=== PATIENT | female | born 1965 | race Caucasian/White ===

== ENCOUNTER 2019-07-21 12:31 | Emergency (ER) | payer OTHER, SELFPAY ==
--- NOTE | ~2019-07-21 | XR_ITS ---
EXAMINATION: XR chest 2V DATE: 07/21/2019 13:14 INDICATION: Cough. TECHNIQUE: Frontal and lateral views of the chest were obtained. COMPARISON: Chest 2 views 11/24/2018 FINDINGS: The chest demonstrates clear lungs without pneumonia, pleural effusion, or pneumothorax. Th e heart size is normal. IMPRESSION: 1. No acute cardiopulmonary disease. Reviewed, dictated and finalized at location A. D COUNTER ATTENDANT
[2019-07-21 12:50] VITALS: BP 151/91; PULSE 80; RESP 16; TEMP 36.6; O2SAT 98
--- NOTE | 2019-07-21 13:04 | ED.URI ---
HPI - URI/Sore Throat General Chief Complaint: Upper Respiratory Infection Stated Complaint: CHEST COLD Time Seen by Provider: 07/21/19 12:50 Source: patient Mode of arrival: ambulatory Limitations: no limitations History of Present Illness HPI Narrative: Jen is a 54-year-old female patient. She presents ambulatory to the emergency room. She states that she has had a cough for the past 1 month.. She originally saw The nurse practitioner at Dr. Farr's office and was given prescription for amoxicillin. She took this for 1 week. She was not any better. She is given another prescription for amoxicillin. She took the 2nd prescription for 1 week. She felt better for a few days. However the cough again started up and she was given a 3rd prescription for amoxicillin on July 16. She has taken 5 days of this prescription. She is still coughing. She has no fever. No chest pain. She has wheezing. She is a half a pack a day smoker. She denies history of hypertension or disease diabetes mellitus or other problems. She is not allergic to any medications. She has not had any fever. MD elicited complaint: cough Pertinent past history: other ( half pack per day cigarette smoker) Onset (ago): month(s) ( 1 month) Consistency: intermittent Severity: moderate Description of mucous: other ( yellowish white) Able to tolerate fluids by mouth: Yes Exacerbating factors: other ( smoking) Relieving factors: nothing Context: other ( no sick contacts. No recent travel.) Associated symptoms: other ( No fever. No chills. No rhinorrhea.) Treatments prior to arrival: other ( See HPI narrative) Related Data Home Medications Medication Instructions Recorded Confirmed alprazolam 0.25 mg PO PRN PRN 07/21/19 07/21/19 citalopram 40 mg PO DAILY 07/21/19 07/21/19 Allergies Allergy/AdvReac Type Severity Reaction Status Date / Time No Known Allergies Allergy Verified 07/21/19 12:54 Review of Systems Review of Systems: All systems reviewed & are unremarkable except as noted in HPI and below Constitutional: Constitutional: Reports as per HPI, Denies chills and Denies fever(s) Eyes: Eyes: Reports as per HPI, Denies change in vision and Denies photophobia ENT: Denies dysphagia, Denies vertigo, Denies dizziness and Denies epistaxis Cardiovascular: Cardiovascular: Reports as per HPI, Denies chest pain and Denies radiating jaw, neck or arm pain Respiratory: Respiratory: Reports as per HPI, Reports cough and Reports wheezing Gastrointestinal: Gastrointestinal: Reports as per HPI, Denies abdominal pain, Denies diarrhea, Denies nausea and Denies vomiting Genitourinary: Genitourinary: Reports no additional female genitourinary complaints, Denies hematuria and Denies dysuria Musculoskeletal: Musculoskeletal: Reports no additional musculoskeletal complaints and Denies back pain Integumentary/Breasts: Skin/Breast: Reports system reviewed and no additional complaints, except as docu and Denies rash Neurologic: Reports system reviewed and no additional complaints, except as documented, Denies vertigo, Denies dizziness, Denies syncope, Denies focal weakness, Denies numbness and Denies weakness Psychiatric: Psychiatric: Reports no additional psychiatric complaints and Reports anxiety Endocrine: Endocrine: Reports no additional endocrine complaints Hematologic/Lymphatic: Hematologic/Lymphatic: Reports no additional hematologic/lymphatic complaints, Denies easy bleeding and Denies easy bruising Allergic/Immunologic: Allergic/Immunologic: Reports no additional allergic/immunologic complaints, Denies lip swelling and Denies tongue swelling [facility] Past Medical History Medical History (Updated 07/21/19 @ 14:03 by Yogi Saunders MD) Carpal tunnel syndrome, bilateral upper limbs No active medical problems Surgical History Surgical History (Updated 07/21/19 @ 13:14 by Yogi Saunders MD) S/P epidural steroid injection Family
[2019-07-21] MEDS: IPRATROPIUM 0.5 MG/ALBUTEROL SULFATE 2.5 MG AMPUL.NEB 3 ML INHALATION ×2 (13:13→14:10)
[2019-07-21 13:14] VITALS: PULSE 80; RESP 18
[2019-07-21 13:14] LABS: Basophils Absolute Auto 0.04 K/mm3 (0.00-0.10); Basophils Percent Auto 0.5 % (0.0-1.0); Eosinophils Absolute Auto 0.42 K/mm3 (0.02-0.50); Eosinophils Percent Auto 5.3 % (1.0-6.0); Hematocrit 43.4 % (35.0-49.0); Hemoglobin 14.4 g/dL (12.0-15.0); Immature Granulocyte Absolute 0.02 K/mm3 (0.00-0.00); Immature Granulocyte Percent A 0.3 % (0.0-0.0); Lymphocytes Absolute Auto 2.95 K/mm3 (1.10-4.50); Lymphocytes Percent Auto 37.4 % (18.0-42.0); Mean Corpuscular HGB Conc 33.2 g/dL (32.0-36.0); Mean Corpuscular Hemoglobin 31.6 pg (27.0-31.0); Mean Corpuscular Volume 95.2 fL (78.0-102.0); Mean Platelet Volume 10.8 fl (9.2-11.8); Monocytes Absolute Auto 0.41 K/mm3 (0.10-0.90); Monocytes Percent Auto 5.2 % (2.0-11.0); Neutrophils Percent Auto 51.3 % (50.0-70.0); Platelet Count Result 213 K/mm3 (150-420); Red Blood Count 4.56 M/mm3 (4.20-5.40); Red Cell Distribution Width 13.5 % (11.6-14.4); White Blood Count 7.9 K/mm3 (4.8-10.8)
[2019-07-21 13:19] VITALS: PULSE 82; RESP 18
[2019-07-21 13:29] LABS: Alanine Aminotransferase 36 U/L (14-59); Albumin Level 3.8 g/dL (3.4-5.0); Alkaline Phosphatase 69 U/L (46-116); Anion Gap 13.5 mmol/L (7-16); Aspartate Amino Transferase 22 U/L (15-37); Bilirubin,Total 0.4 mg/dL (0.00-1.00); Blood Urea Nitrogen 9 mg/dL (7-18); Calcium 9.2 mg/dL (8.5-10.1); Carbon Dioxide 29 mmol/L (21-32); Chloride 103 mmol/L (98-108); Estimated CRCL calculation 79 ml/min; Estimated Glomerular Filt Rate > 60; Glucose 85 mg/dL (70-99); Osmolality Calculated 291 mOsm/kg (285-295); Potassium 3.5 mmol/L (3.5-5.1); Sodium 142 mmol/L (136-145); Total Protein 7.9 g/dL (6.4-8.2)
[2019-07-21 14:11] VITALS: PULSE 80; RESP 18
[2019-07-21 14:19] VITALS: PULSE 82; RESP 18
[2019-07-21 14:20] VITALS: PULSE 82; RESP 18; O2SAT 99
== END 2019-07-21 14:21 | disposition home or self-care (01) ==
PROVIDERS: Emergency Provider Surgery; PCP Internal Medicine
DX: J40 Bronchitis, not specified as acute or chronic (principal)
CPT/HCPCS: 36415; 71046; 80053; 85025; 94640; 99283; 99284

== ENCOUNTER 2019-08-22 09:15 | Outpatient (CLI) | payer OTHER, SELFPAY ==
[2019-08-22 09:28] LABS: Add Urine Microscopic? NO; Appearance Urine Clear (Clear); Bilirubin Urine Negative (Negative); Blood Urine Negative (Negative); Color Urine Yellow (Yellow); Glucose Urine UA Negative (Negative); Ketones Urine Negative (Negative); Leukocyte Esterase Ur Negative (Negative); Nitrate Urine Negative (Negative); Protein Urine Negative (Negative); Urobilinogen Urine 0.2 mg/dL (0.2-1.0)
[2019-08-22 09:59] LABS: Alanine Aminotransferase 34 U/L (14-59); Alkaline Phosphatase 65 U/L (46-116); Anion Gap 14.5 mmol/L (7-16); Aspartate Amino Transferase 22 U/L (15-37); Bilirubin,Total 0.6 mg/dL (0.00-1.00); Blood Urea Nitrogen 12 mg/dL (7-18); Calcium 9.1 mg/dL (8.5-10.1); Carbon Dioxide 28 mmol/L (21-32); Chloride 105 mmol/L (98-108); Estimated Glomerular Filt Rate 59; Glucose 94 mg/dL (70-99); Osmolality Calculated 295 mOsm/kg (285-295); Potassium 4.5 mmol/L (3.5-5.1); Sodium 143 mmol/L (136-145); Total Protein 7.6 g/dL (6.4-8.2); Uric Acid 5.8 mg/dL (2.6-6.0)
[2019-08-22 11:45] LABS: Free T4 Free Thyroxine 0.96 ng/dL (0.76-1.46); Thyroid Stimulating Hormone 1.39 uIU/mL (0.36-3.74)
[2019-08-31 00:36] LABS: CA-125 18 U/mL (<35)
[2019-08-31 05:51] LABS: CA 19-9 32 U/mL (<34)
== END 2019-08-22 09:16 | disposition home or self-care (01) ==
LOC: CHSLAB 09:17
PROVIDERS: PCP Internal Medicine; Visit Provider Internal Medicine
DX: E79.0 Hyperuricemia without signs of inflammatory arthritis and tophaceous disease (principal); I10 Essential (primary) hypertension; R53.82 Chronic fatigue, unspecified
CPT/HCPCS: 36415; 80053; 81003; 82378; 84439; 84443; 84550; 86301; 86304

== ENCOUNTER 2019-08-27 07:48 | Outpatient (CLI) | payer OTHER, SELFPAY ==
--- NOTE | ~2019-08-27 | US_ITS ---
US abdomen complete, US pelvic limited INDICATION: Ascites. Abdominal pain. Right upper quadrant pain and bloating for one month. PROCEDURE: Realtime right upper abdominal and pelvic ultrasound. COMPARISON: No prior studies for comparison. FINDINGS: The pancreas is normal without focal mass or pancreatic ductal dilation. Echotexture is in creased, consistent with fatty alteration. There is normal directional flow in the portal vein. The gallbladder is normal without stones, gallbladder wall thickening or pericholecystic fluid. Comm on bile duct measures 8 mm. No sonographic Roberson's sign. Renal echotexture is normal bilaterally wi thout hydronephrosis, contour deforming mass or renal calculi. There is ascites of the abdomen and pe lvis. IMPRESSION: 1: Hepatic steatosis. 2: Moderate ascites. 3: Mildly dilated common bile ducts. Recommend correlation with liver function tests. Reviewed, dictated and finalized at location A. IMPRESSION: 1: Hepatic steatosis. 2: Moderate ascites. 3: Mildly dilated common bile ducts. Recommend correlation with liver function tests.
== END 2019-08-27 07:49 | disposition home or self-care (01) ==
LOC: CHSIMG 07:50
PROVIDERS: PCP Internal Medicine; Visit Provider Internal Medicine
DX: R10.84 Generalized abdominal pain (principal); R18.8 Other ascites
CPT/HCPCS: 76700; 76857

== ENCOUNTER 2019-09-04 13:13 | Outpatient (CLI) | payer OTHER, SELFPAY ==
--- NOTE | ~2019-09-04 | CT_ITS ---
EXAMINATION: CT abdomen pelvis w con DATE: 09/04/2019 14:02 INDICATION: Right upper quadrant abdominal pain, bloating for 3 weeks. TECHNIQUE: Computed tomography (CT) of the abdomen and pelvis was performed with 100 cc Omnipaque 350 intravenous contrast. Automated exposure control and iterative reconstruction technique were employe d. Exam dose: 1450.78 mGy-cm total exam DLP. COMPARISON: 09/06/2019 complete abdominal ultrasound examination FINDINGS: The lung bases are clear. Normal heart size. No pericardial or pleural effusion. Diffuse hepatic steatosis. No hepatic, splenic, pancreatic, and adrenal or renal space-occupying mass lesion is evident. There is atherosclerotic calcification of the abdominal aorta and iliac arteries, without aneurysm. No gallbladder wall thickening or pericholecystic fluid or inflammation. Diverticulosis of the sigmoid and descending colon, transverse colon. No CT evidence of diverticuliti s. Normal appendix. No bowel obstruction, bowel wall thickening, pneumatosis or intraperitoneal free air. There is a huge up to 17.5 x 28 x 19 cm tall thin-walled cystic lesion apparently emanating from the right adnexal region, likely of right ovarian origin. The uterus and urinary bladder are unremarkable. There is fusion/grade 2 anterolisthesis at L5-S1 consistent with severe degenerative change at the ap ophyseal joints. IMPRESSION: 17.5 x 28 x 19 cm tall thin-walled cystic mass apparently emanating from the right adnex al area, extending into the upper abdomen, simulating ascites on 09/06/2019 ultrasound abdomen examina tion Hepatic steatosis Diverticulosis of the colon; normal appendix Reviewed, dictated and finalized at Location A. Reviewed, dictated and finalized at location B. IMPRESSION: 17.5 x 28 x 19 cm tall thin-walled cystic mass apparently emanatin g from the right adnexal area, extending into the upper abdomen, simulating asc ites on 09/06/2019 ultrasound abdomen examination Hepatic steatosis Diverticulosis of the colon; normal appendix
== END 2019-09-04 13:14 | disposition home or self-care (01) ==
PROVIDERS: PCP Internal Medicine; Visit Provider Internal Medicine
DX: R10.9 Unspecified abdominal pain (principal); R18.8 Other ascites
CPT/HCPCS: 74177; Q9965

== ENCOUNTER 2019-09-24 10:21 | Outpatient (CLI) | payer OTHER, SELFPAY ==
[2019-09-24 10:34] LABS: Basophils Absolute Auto 0.05 K/mm3 (0.00-0.10); Basophils Percent Auto 0.7 % (0.0-1.0); Eosinophils Absolute Auto 0.31 K/mm3 (0.02-0.50); Eosinophils Percent Auto 4.5 % (1.0-6.0); Hematocrit 47.4 % (35.0-49.0); Hemoglobin 15.3 g/dL (12.0-15.0); Immature Granulocyte Absolute 0.01 K/mm3 (0.00-0.00); Immature Granulocyte Percent A 0.1 % (0.0-0.0); Lymphocytes Absolute Auto 2.91 K/mm3 (1.10-4.50); Lymphocytes Percent Auto 41.9 % (18.0-42.0); Mean Corpuscular HGB Conc 32.3 g/dL (32.0-36.0); Mean Corpuscular Hemoglobin 31.4 pg (27.0-31.0); Mean Corpuscular Volume 97.3 fL (78.0-102.0); Mean Platelet Volume 11.2 fl (9.2-11.8); Monocytes Absolute Auto 0.46 K/mm3 (0.10-0.90); Monocytes Percent Auto 6.6 % (2.0-11.0); Neutrophils Absolute Auto 3.2 K/mm3 (1.7-7.2); Neutrophils Percent Auto 46.2 % (50.0-70.0); Platelet Count Result 181 K/mm3 (150-420); Red Blood Count 4.87 M/mm3 (4.20-5.40); Red Cell Distribution Width 13.3 % (11.6-14.4); White Blood Count 6.9 K/mm3 (4.8-10.8)
--- NOTE | 2019-09-24 10:42 | ECG_ITS ---
Measurements Intervals [place] Rate: 76 P: 42 MD: 147 QRS: 69 QRSD: 81 T: 52 QT: 396 QTc: 446 Interpretive Statements SINUS RHYTHM BASELINE ARTIFACT- I, II, III, AVL, AVF NORMAL ECG Electronically Signed On 09-24-2019 11:12:52 CDT by Yeison Martinez D.O.
[2019-09-24 11:29] LABS: Anion Gap 11.5 mmol/L (7-16); Blood Urea Nitrogen 12 mg/dL (7-18); Calcium 9.3 mg/dL (8.5-10.1); Carbon Dioxide 31 mmol/L (21-32); Chloride 105 mmol/L (98-108); Estimated Glomerular Filt Rate 55; Glucose 91 mg/dL (70-99); Osmolality Calculated 295 mOsm/kg (285-295); Potassium 4.5 mmol/L (3.5-5.1); Sodium 143 mmol/L (136-145)
== END 2019-09-24 10:22 | disposition home or self-care (01) ==
PROVIDERS: PCP Internal Medicine
DX: Z01.818 Encounter for other preprocedural examination (principal)
CPT/HCPCS: 36415; 80048; 85025; 93005

== ENCOUNTER 2019-12-20 13:16 | Outpatient (CLI) | payer OTHER, SELFPAY ==
--- NOTE | ~2019-12-20 | MM_ITS ---
EXAMINATION: MM screening migue BI w henyr HISTORY: Screening mammogram TECHNIQUE: Craniocaudal and mediolateral oblique 3-D tomosynthesis images were obtained and synthetic 2-D images were generated. CAD analysis was submitted and interpreted. COMPARISON: Comparison to multiple prior studies sequentially, with oldest reviewed study dated 12/12. BREAST PARENCHYMAL COMPOSITION: There are scattered areas of fibroglandular density. FINDINGS: Stable benign-appearing left breast mass. There is no evidence of suspicious mass, calcific ation, or architectural distortion to suggest malignancy in either breast. There has been no suspicio us interval change. IMPRESSION: 1. No mammographic evidence of malignancy. 2. Recommend routine screening mammography in one year. BI-RADS Category 2: Benign finding(s). Reviewed, dictated and finalized at location A.
== END 2019-12-20 13:17 | disposition home or self-care (01) ==
LOC: CHSIMG 13:18
PROVIDERS: PCP Internal Medicine; Visit Provider Internal Medicine
DX: Z12.31 Encounter for screening mammogram for malignant neoplasm of breast (principal)
CPT/HCPCS: 77063; 77067

== ENCOUNTER 2020-06-11 14:07 | Outpatient (CLI) | payer OTHER, SELFPAY ==
[2020-06-11 14:50] LABS: SARS-CoV-2 Ag Positive (Negative)
== END 2020-06-11 14:08 | disposition home or self-care (01) ==
LOC: CHSLAB 14:11
PROVIDERS: PCP Internal Medicine; Visit Provider Internal Medicine
DX: U07.1 COVID-19 (principal)
CPT/HCPCS: 87426

== ENCOUNTER 2020-07-07 07:48 | Outpatient (CLI) | payer OTHER, SELFPAY ==
--- NOTE | ~2020-07-07 | CT_ITS ---
EXAMINATION: CT abdomen pelvis w con DATE: 07/07/2020 08:33 INDICATION: Ovarian neoplasm with ascites. TECHNIQUE: Computed tomography (CT) of the abdomen and pelvis was performed with 100 mL Omnipaque 350 intravenous contrast. Automated exposure control and iterative reconstruction technique were employe d. The dose-length product was 1524.51 mGy-cm. COMPARISON: CT abdomen and pelvis 09/04/2019 FINDINGS: The visualized portions of the lung bases demonstrate mild atelectasis. No pleural effusion . The heart size is normal. No pericardial effusion. There is diffuse hepatic steatosis. The gallblad john, spleen, pancreas, adrenal glands, and kidneys are normal. There is diverticulosis of the colon w ithout evidence of diverticulitis. There are no dilated loops of bowel. The appendix is normal. There are no pathologically enlarged lymph nodes. There is no free intraperitoneal fluid. There are chroni c bilateral L5 pars defects. There is 13 mm anterolisthesis of L5 on S1. There is interbody fusion at L5-S1. There is severe thoracic spondylosis and moderate lumbar spondylosis. IMPRESSION: 1. No evidence of metastatic disease. Reviewed, dictated and finalized at location B. RVISOR GRAPHITE
== END 2020-07-07 07:49 | disposition home or self-care (01) ==
LOC: CHSIMG 07:50
PROVIDERS: PCP Internal Medicine; Visit Provider Internal Medicine
DX: D49.59 Neoplasm of unspecified behavior of other genitourinary organ (principal); R18.8 Other ascites
CPT/HCPCS: 74177; Q9967

== ENCOUNTER 2020-07-17 00:56 | Day surgery (SDC) | payer OTHER, SELFPAY ==
[2020-07-11 11:03] VITALS: BMI 37.3
[2020-07-17 06:38] VITALS: BP 134/108; PULSE 62; RESP 16; TEMP 36.3; O2SAT 98; BMI 46.0
[2020-07-17] MEDS: LACTATED RINGERS 1,000 ML 150 ML IV CONT (06:59)
--- NOTE | 2020-07-17 07:34 | WPDANESEPPF ---
Anes - Initial Pre Proc Eval Procedure: Operation Date: 07/17/20 08:00 Proposed Procedures p Screening Colonoscopy - Costa Soto DO Date/Time: 07/17/20 07:34 Surgeon: Costa Soto DO Pre Op Diagnosis: Neoplasm Screening Patient Data Age: 55 Gender: F Height: 5 ft 6 in Weight: 129.5 kg Last Vital Signs Temp 97.3 F L 07/17/20 06:38 Pulse 62 07/17/20 06:38 Resp 16 07/17/20 06:38 BP 134/108 H 07/17/20 06:38 Pulse Ox 98 07/17/20 06:38 Allergies Allergy/AdvReac Type Severity Reaction Status Date / Time No Known Allergies Allergy Verified 07/17/20 06:37 Home Medications Medication Instructions Recorded Confirmed Type alprazolam 0.25 mg PO PRN PRN 07/21/19 07/17/20 History citalopram 40 mg PO DAILY 07/21/19 07/17/20 History triamterene-hydrochlorothiazid 1 tablet PO DAILY 07/11/20 07/17/20 History Patient hx anesthesia problems: none Family hx anesthesia problems: none PMFSH Past Medical History Medical History (System 07/07/20 @ 14:04 by Ramila Lux) Carpal tunnel syndrome, bilateral upper limbs No active medical problems Surgical History Surgical History (System 07/07/20 @ 14:04 by Ramila Lux) S/P epidural steroid injection Family History Family History (System 07/07/20 @ 14:04 by Ramila Lux) Mother , mother had Alzheimer's. She had a aneurysm in the heart. She 2 months ago at age 75. No problems noted. Social History Social History (System 07/07/20 @ 14:04 by Ramila Lux) Smoking packs per day: 0.5 Smoking cigarettes per day: 10.0 Years smoked: 15 Smoking pack-years: 7.50 Smoking status: Current every day smoker Tobacco type: cigarettes Alcohol intake: current Drinks per week: 4 Substance use: never Substance use type: does not use Spiritual care concerns: No Anes - Eval Final PreProcedure Day of Procedure 07/17/20 07:34 Patient weight: morbidly obese Heart: regular rate and rhythm Lungs: clear to auscultation Airway: Mallampati scale class III Neurological: alert and oriented Last oral intake: >/= 8 hours ASA classification: IV Emergent: no Anesthetic plan: proceed Anesthesia type and monitoring: general GIVS and standard monitoring Informed Consent: The patient's anesthetic plan and its attendant risks and benefits were discussed with the patient/family/POA. Questions were solicited and answers provided to the satisfaction of the patient/family/POA.
--- NOTE | 2020-07-17 08:11 | PM.IMHP ---
H&P: HPI History of Present Illness Date/Time: 07/17/20 08:11 Chief Complaint: screening colon Narrative: Jen Waddell is a 55 year old female who presents for colonoscopy. She has been having some bloating, but no other symptoms. No fam hx colon cancer. Review of Systems Review of Systems: All systems reviewed & are unremarkable except as noted in HPI and below Constitutional: Constitutional: Denies chills, Denies fever(s), Denies headache(s) and Denies weight loss Eyes: Eyes: Denies change in vision ENT: Denies dizziness, Denies headache(s), Denies neck mass and Denies throat swelling Cardiovascular: Cardiovascular: Denies chest pain, Denies lightheadedness and Denies dyspnea Respiratory: Respiratory: Denies cough, Denies dyspnea and Denies wheezing Gastrointestinal: Gastrointestinal: Denies abdominal pain, Denies change in bowel habits, Denies nausea and Denies vomiting Genitourinary: Genitourinary: Denies hematuria and Denies dysuria Musculoskeletal: Musculoskeletal: Reports as per HPI Integumentary/Breasts: Skin/Breast: Reports as per HPI Neurologic: Denies dizziness and Denies headache(s) Allergic/Immunologic: Allergic/Immunologic: Denies throat swelling and Denies wheezing PMF Past Medical History Medical History Carpal tunnel syndrome, bilateral upper limbs No active medical problems Surgical History Surgical History S/P epidural steroid injection Family History Family History Mother , mother had Alzheimer's. She had a aneurysm in the heart. She 2 months ago at age 75. No problems noted. Social History Social History Smoking packs per day: 0.5 Smoking cigarettes per day: 10.0 Years smoked: 15 Smoking pack-years: 7.50 Smoking status: Current every day smoker Tobacco type: cigarettes Alcohol intake: current Drinks per week: 4 Substance use: never Substance use type: does not use Spiritual care concerns: No Meds Home Medications and Allergies Home Medications Medication Instructions Recorded Confirmed Type alprazolam 0.25 mg PO PRN PRN 07/21/19 07/17/20 History citalopram 40 mg PO DAILY 07/21/19 07/17/20 History triamterene-hydrochlorothiazid 1 tablet PO DAILY 07/11/20 07/17/20 History Allergies Allergy/AdvReac Type Severity Reaction Status Date / Time No Known Allergies Allergy Verified 07/17/20 06:37 Vital Signs Vital Signs - 24 hr 07/17/20 06:38 Temperature 36.3 C L Pulse Rate 62 Respiratory Rate 16 Blood Pressure 134/108 H Pulse Oximetry 98 Exam Const: General: no acute distress and alert Orientation/consciousness: patient oriented x3 HENMT: Head: normocephalic and atraumatic Ears: hearing grossly normal bilaterally General nose exam: Normal nares present Mouth: Yes Normal oral and palatal mucosa present Eyes: Periorbital: periorbital findings normal Sclera: sclerae normal EOM: EOMs intact bilaterally Neck: Neck: normal visual inspection, no lymphadenopathy and trachea midline Chest: Chest palpation & inspection: normal inspection of the chest Resp: Effort & Inspection: normal respiratory effort Auscultation: clear to auscultation bilaterally Cardio: Jugular venous distension: no JVD Rate: regular rate Rhythm: regular rhythm Heart sounds: S1 normal heart sound present and S2 normal heart sound present Peripheral pulses: Peripheral pulses 2+ throughout GI: Inspection: normal to inspection GI Palp: Yes Soft to palpation, No Tenderness to palpation present (GI), No Guarding due to palpation present (GI) and No Rebound tenderness present Percussion: Yes normal to percussion Auscultation: normal bowel sounds : General: Yes no CVA tenderness Back/Spine/Pelvis: Back: no
[2020-07-17 08:42] VITALS: BP 111/64; PULSE 59; RESP 21; O2SAT 100
[2020-07-17 08:52] VITALS: BP 134/85; PULSE 57; RESP 15; O2SAT 98
[2020-07-17 09:02] VITALS: BP 136/87; PULSE 54; RESP 12; O2SAT 99
== END 2020-07-17 09:10 | disposition home or self-care (01) ==
PROVIDERS: PCP Internal Medicine; Visit Provider Surgery
PROC: 0DJD8ZZ Inspection of Lower Intestinal Tract, Via Natural or Artificial Opening Endoscopic (ICD-10-PCS; CPT 45378; principal; 2020-07-17 08:00)
DX: Z12.11 Encounter for screening for malignant neoplasm of colon (principal); D12.4 Benign neoplasm of descending colon; K57.30 Diverticulosis of large intestine without perforation or abscess without bleeding; K64.8 Other hemorrhoids; F17.210 Nicotine dependence, cigarettes, uncomplicated; E66.01 Morbid (severe) obesity due to excess calories; Z68.42 Body mass index [BMI] 45.0-49.9, adult
CPT/HCPCS: 45380; 88305; J2704; J7120

== ENCOUNTER 2020-09-17 07:38 | Outpatient (CLI) | payer OTHER, SELFPAY ==
[2020-09-17 07:51] LABS: Add Urine Microscopic? NO; Appearance Urine Clear (Clear); Basophils Absolute Auto 0.05 K/mm3 (0.00-0.10); Basophils Percent Auto 0.7 % (0.0-1.0); Bilirubin Urine Negative (Negative); Blood Urine Negative (Negative); Color Urine Yellow (Yellow); Eosinophils Absolute Auto 0.28 K/mm3 (0.02-0.50); Eosinophils Percent Auto 3.9 % (1.0-6.0); Glucose Urine UA Negative (Negative); Hematocrit 45.4 % (35.0-49.0); Hemoglobin 14.5 g/dL (12.0-15.0); Immature Granulocyte Absolute 0.02 K/mm3 (0.00-0.00); Immature Granulocyte Percent A 0.3 % (0.0-0.0); Ketones Urine Negative (Negative); Leukocyte Esterase Ur Negative (Negative); Lymphocytes Absolute Auto 2.26 K/mm3 (1.10-4.50); Lymphocytes Percent Auto 31.6 % (18.0-42.0); Mean Corpuscular HGB Conc 31.9 g/dL (32.0-36.0); Mean Platelet Volume 11.2 fl (9.2-11.8); Monocytes Absolute Auto 0.44 K/mm3 (0.10-0.90); Monocytes Percent Auto 6.1 % (2.0-11.0); Neutrophils Absolute Auto 4.1 K/mm3 (1.7-7.2); Neutrophils Percent Auto 57.4 % (50.0-70.0); Nitrate Urine Negative (Negative); Platelet Count Result 166 K/mm3 (150-420); Protein Urine Negative (Negative); Red Blood Count 4.68 M/mm3 (4.20-5.40); Red Cell Distribution Width 14.6 % (11.6-14.4); Urobilinogen Urine 0.2 mg/dL (0.2-1.0); White Blood Count 7.2 K/mm3 (4.8-10.8)
[2020-09-17 09:17] LABS: Alanine Aminotransferase 41 U/L (14-59); Albumin Level 3.7 g/dL (3.4-5.0); Alkaline Phosphatase 81 U/L (46-116); Anion Gap 8 mmol/L (8-16); Aspartate Amino Transferase 25 U/L (15-37); Bilirubin,Total 0.5 mg/dL (0.00-1.00); Blood Urea Nitrogen 13 mg/dL (7-18); Calcium 8.8 mg/dL (8.5-10.1); Carbon Dioxide 30 mmol/L (21-32); Chloride 104 mmol/L (98-108); Cholesterol 188 mg/dL (0-200); Estimated Glomerular Filt Rate 51; Glucose 115 mg/dL (70-99); HDL Direct 34 mg/dL (40-60); LDL Cholesterol Calculated 114 mg/dL (<130); Osmolality Calculated 295 mOsm/kg (285-295); Potassium 4.3 mmol/L (3.5-5.1); Sodium 142 mmol/L (136-145); Total Protein 7.3 g/dL (6.4-8.2); Triglycerides 201 mg/dL (0-150); Uric Acid 6.7 mg/dL (2.6-6.0)
== END 2020-09-17 07:39 | disposition home or self-care (01) ==
LOC: CHSLAB 07:40
PROVIDERS: PCP Internal Medicine; Visit Provider Internal Medicine
DX: E78.2 Mixed hyperlipidemia (principal); I10 Essential (primary) hypertension; E79.0 Hyperuricemia without signs of inflammatory arthritis and tophaceous disease; R10.11 Right upper quadrant pain
CPT/HCPCS: 36415; 80053; 80061; 81003; 84550; 85025

== ENCOUNTER 2020-11-03 08:01 | Outpatient (CLI) | payer OTHER, SELFPAY ==
[2020-11-03 08:32] LABS: Hemoglobin A1C 5.9 % (<5.7)
[2020-11-03 09:03] LABS: Anion Gap 10 mmol/L (8-16); Blood Urea Nitrogen 18 mg/dL (7-18); Calcium 8.9 mg/dL (8.5-10.1); Carbon Dioxide 27 mmol/L (21-32); Chloride 105 mmol/L (98-108); Estimated Glomerular Filt Rate 53; Glucose 122 mg/dL (70-99); Osmolality Calculated 296 mOsm/kg (285-295); Potassium 4.2 mmol/L (3.5-5.1); Sodium 142 mmol/L (136-145); Uric Acid 5.2 mg/dL (2.6-6.0)
== END 2020-11-03 08:02 | disposition home or self-care (01) ==
LOC: CHSLAB 08:03
PROVIDERS: PCP Internal Medicine; Visit Provider Nurse Practitioner Family
DX: R73.01 Impaired fasting glucose (principal); I10 Essential (primary) hypertension; E79.0 Hyperuricemia without signs of inflammatory arthritis and tophaceous disease
CPT/HCPCS: 36415; 80048; 83036; 84550

== ENCOUNTER 2020-12-29 13:10 | Outpatient (CLI) | payer OTHER, SELFPAY ==
[2020-12-29 14:18] LABS: SARS-CoV-2 RNA PCR Negative (Negative)
== END 2020-12-29 13:11 | disposition home or self-care (01) ==
LOC: CHSLAB 13:12
PROVIDERS: PCP Internal Medicine; Visit Provider Internal Medicine
DX: Z20.822 Contact with and (suspected) exposure to COVID-19 (principal)
CPT/HCPCS: C9803; U0003; U0005

== ENCOUNTER 2021-03-02 07:38 | Outpatient (CLI) | payer OTHER, SELFPAY ==
[2021-03-02 07:58] LABS: Add Urine Microscopic? NO; Appearance Urine Clear (Clear); Bilirubin Urine Negative (Negative); Blood Urine Negative (Negative); Color Urine Light Yellow (Yellow); Glucose Urine UA Negative (Negative); Ketones Urine Negative (Negative); Leukocyte Esterase Ur Negative (Negative); Nitrate Urine Negative (Negative); Protein Urine Negative (Negative); Specific Grav Ur 1.015 (1.010-1.020); Urobilinogen Urine 0.2 mg/dL (0.2-1.0)
[2021-03-02 08:12] LABS: Hemoglobin A1C 5.9 % (<5.7)
[2021-03-02 09:12] LABS: Alanine Aminotransferase 33 U/L (14-59); Albumin Level 3.6 g/dL (3.4-5.0); Alkaline Phosphatase 70 U/L (46-116); Anion Gap 10 mmol/L (8-16); Aspartate Amino Transferase 15 U/L (15-37); Bilirubin,Total 0.4 mg/dL (0.00-1.00); Blood Urea Nitrogen 17 mg/dL (7-18); Carbon Dioxide 27 mmol/L (21-32); Chloride 105 mmol/L (98-108); Cholesterol 166 mg/dL (0-200); Estimated Glomerular Filt Rate > 60; Glucose 115 mg/dL (70-99); HDL Direct 34 mg/dL (40-60); LDL Cholesterol Calculated 106 mg/dL (<130); Osmolality Calculated 296 mOsm/kg (285-295); Sodium 142 mmol/L (136-145); Total Protein 6.8 g/dL (6.4-8.2); Triglycerides 131 mg/dL (0-150)
== END 2021-03-02 07:39 | disposition home or self-care (01) ==
LOC: CHSLAB 07:39
PROVIDERS: PCP Internal Medicine; Visit Provider Internal Medicine
DX: E78.2 Mixed hyperlipidemia (principal); I10 Essential (primary) hypertension; R73.01 Impaired fasting glucose
CPT/HCPCS: 36415; 80053; 80061; 81003; 83036

== ENCOUNTER 2021-03-12 12:43 | Outpatient (CLI) | payer OTHER, SELFPAY ==
--- NOTE | ~2021-03-12 | XR_ITS ---
Corrected Report Changed examination from 3V to 4V -[facility] [id number] EXAMINATION: XR knee RT 4V DATE: 03/12/2021 13:22 INDICATION: Right knee pain. TECHNIQUE: 4 views of right knee with weightbearing were obtained. COMPARISON: Right knee radiograph 11/18/2017 FINDINGS: Bone alignment is normal. No fracture. There is moderate osteoarthritis of medial compartment and mild osteoarthritis of lateral and patellofemoral compartments. There is a moderate-sized knee joint effusion. IMPRESSION: 1. Moderate right knee osteoarthritis. 2. Moderate-sized right knee joint effusion. Reviewed, dictated and finalized at location A. MTDD
--- NOTE | ~2021-03-12 | XR_ITS ---
Corrected Report Changed examination from 3V to 4V -[facility] [id number] EXAMINATION: XR knee LT 4V DATE: 03/12/2021 13:22 INDICATION: Left knee pain. TECHNIQUE: 4 views of left knee were obtained. COMPARISON: None. FINDINGS: Bone alignment is normal. No fracture. There is mild tricompartmental osteoarthritis characterized by marginal osteophytes. No joint space narrowing. No knee joint effusion. IMPRESSION: 1. Mild left knee osteoarthritis. Reviewed, dictated and finalized at location A. MTDD
--- NOTE | ~2021-03-12 | MM_ITS ---
EXAMINATION: MM screening migue BI w henry HISTORY: Screening mammogram TECHNIQUE: Craniocaudal and mediolateral oblique 3-D tomosynthesis images were obtained and synthetic 2-D images were generated. CAD analysis was submitted and interpreted. COMPARISON: 12/20/2019, 01/19/2017, 12/23/2015 bilateral digital screening mammogram examinations BREAST PARENCHYMAL COMPOSITION: There are scattered areas of fibroglandular density. FINDINGS: Occasional bilateral benign calcifications. There is no evidence of suspicious mass, calcif ication, or architectural distortion to suggest malignancy in either breast. There has been no suspic ious interval change. IMPRESSION: 1. No mammographic evidence of malignancy. 2. Recommend routine screening mammography in one year. BI-RADS Category 2: Benign finding(s). Reviewed, dictated and finalized at location A.
== END 2021-03-12 12:44 | disposition home or self-care (01) ==
LOC: CHSIMG 12:45
PROVIDERS: PCP Internal Medicine; Visit Provider Internal Medicine
DX: M25.562 Pain in left knee (principal); M25.561 Pain in right knee; M17.0 Bilateral primary osteoarthritis of knee; Z12.31 Encounter for screening mammogram for malignant neoplasm of breast
CPT/HCPCS: 73562; 73564; 77063; 77067

== ENCOUNTER 2021-04-01 07:17 | Outpatient (CLI) | payer OTHER, SELFPAY ==
--- NOTE | ~2021-04-01 | MR_ITS ---
EXAMINATION: MR knee RT wo con DATE: 04/01/2021 08:28 INDICATION: Right knee pain TECHNIQUE: Magnetic resonance imaging (MRI) of the right knee was performed without intravenous contr ast. Sequences included coronal PD-weighted FSE, coronal PD-weighted FS FSE, sagittal T2-weighted FS E, sagittal PD-weighted FS FSE and axial PD weighted fat saturated FSE. COMPARISON: None. FINDINGS: Medial compartment: Complex medial meniscal tear which includes a radial tear plane near the posterior root, a vertical p aired beak configuration tear plane in the more medial posterior horn and finally a longitudinal hori zontal tear plane extending to the inferior articular surface at the medial meniscal body. Deep chond ral ulceration at the central to medial aspect of the medial tibial plateau with chondral surface irr egularity and minimal scattered subarticular edema. Additional partial thickness cartilage loss with deep fissuring at the anterior weightbearing medial femoral condyle and small region of deep chondral ulceration at the central weightbearing medial femoral condyle. Additional minimal subarticular sadia a along with small marginal osteophytes along the medial rim of the weightbearing medial femoral cond yle. Lateral compartment: Lateral meniscus is normal. Mild partial-thickness cartilage loss with scattered chondral surface irr egularity at the posterior weightbearing lateral femoral condyle. Patellofemoral compartment: Partial-thickness cartilage loss with chondral surface regularity throughout the majority of the kelly llofemoral compartment. Deeper ulceration/fissuring with mild underlying cortical irregularity at the inferior aspect of the lateral trochlea. Ligaments and tendons: Anterior and posterior cruciate ligaments are normal. The medial collateral ligament and fibular lalit ateral ligament complex are normal. Mild distal quadriceps tendinopathy. Patellar tendon is normal. T he visualized medial and lateral hamstring tendons as well as the iliotibial band are normal. Fluid: Small right knee joint effusion. Small Garrett's cyst with a few thin internal synovial septations. No loose osteochondral bodies identified. Mild prepatellar edema without discrete bursal fluid collectio n. Osseous/other: Normal marrow signal aside from the previous noted mild degenerative subchondral changes. No fracture or pathologic marrow replacing process. IMPRESSION: 1. Complex medial meniscal tear. 2. Mild tricompartmental osteoarthritis with regions of high-grade chondromalacia in the medial and p atellofemoral compartments. 3. Small right knee joint effusion and small Garrett's cyst. 4. Mild distal quadriceps tendinopathy. Reviewed, dictated and finalized at location A. IMPRESSION: 1. Complex medial meniscal tear. 2. Mild tricompartmental osteoarthritis with regions of high-grade chondromalac ia in the medial and patellofemoral compartments. 3. Small right knee joint effusion and small Garrett's cyst. 4. Mild distal quadriceps tendinopathy.
== END 2021-04-01 07:18 | disposition home or self-care (01) ==
LOC: CHSIMG 07:18
PROVIDERS: PCP Internal Medicine; Visit Provider Internal Medicine
DX: M25.561 Pain in right knee (principal)
CPT/HCPCS: 73721

== ENCOUNTER 2021-04-15 07:42 | Outpatient (CLI) | payer OTHER, SELFPAY ==
--- NOTE | ~2021-04-15 | US_ITS ---
EXAMINATION: US soft tissue UE RT EXAM DATE: 04/15/2021 08:14 INDICATION: Cyst on R arm. TECHNIQUE: Multiple grayscale and Doppler images of the symptomatic region right arm palpable area we re obtained (by a technologist who performed the scan) and subsequently reviewed. There is no prior study for comparison. FINDINGS: Scanning in the area indicated as region of clinical concern on right arm demonstrates a focal region which is isoechoic to the subcutaneous fat, could be an encapsulated lipoma measuring about 3.5 cm i n diameter by 1.3 cm in thickness. Please clinically correlate. The skin overlying this and the muscu lature deep to this are unremarkable. IMPRESSION: Focal fat echogenicity subcutaneous region which could be encapsulated lipoma. Reviewed, dictated and finalized at location B. IMPRESSION: Focal fat echogenicity subcutaneous region which could be encapsula flakito lipoma.
== END 2021-04-15 07:43 | disposition home or self-care (01) ==
LOC: CHSIMG 07:44
PROVIDERS: PCP Internal Medicine; Visit Provider Internal Medicine
DX: R22.31 Localized swelling, mass and lump, right upper limb (principal)
CPT/HCPCS: 76882

== ENCOUNTER 2021-04-21 15:57 | Outpatient (CLI) | payer OTHER, SELFPAY ==
[2021-04-21 17:58] LABS: Influenza A QL RT-PCR Negative (Negative); Influenza B QL RT-PCR Negative (Negative); SARS-CoV-2 RNA PCR Negative (Negative)
== END 2021-04-21 15:58 | disposition home or self-care (01) ==
LOC: CHSLAB 15:59
PROVIDERS: PCP Internal Medicine; Visit Provider Internal Medicine
DX: J06.9 Acute upper respiratory infection, unspecified (principal); Z20.822 Contact with and (suspected) exposure to COVID-19
CPT/HCPCS: 87502; C9803; U0003; U0005

== ENCOUNTER 2021-04-25 10:38 | Emergency (ER) | payer OTHER, SELFPAY ==
--- NOTE | ~2021-04-25 | XR_ITS ---
EXAMINATION: XR chest 2V DATE: 04/25/2021 11:15 INDICATION: One week of congestion. TECHNIQUE: PA and lateral views of the chest were obtained. COMPARISON: Chest radiograph dated 07/21/2019 FINDINGS: The lungs remain clear with no focal airspace opacities, pulmonary edema, pleural effusion or pneumot horax. The cardiomediastinal silhouette is normal. Mild thoracic spondylosis. IMPRESSION: 1. No acute cardiopulmonary disease. Reviewed, dictated and finalized at location A.
[2021-04-25 10:50] VITALS: BP 173/95; PULSE 92; RESP 20; TEMP 36.6; O2SAT 96
[2021-04-25 11:25] VITALS: PULSE 90; RESP 20; O2SAT 96
[2021-04-25] MEDS: ALBUTEROL SULFATE NEB 1.25 MG/3 ML INH INHALATION (11:25)
[2021-04-25] MEDS: methylPREDNISolone ACETATE 40 MG/ML VIAL 80 MG IM (11:27)
--- NOTE | 2021-04-25 11:31 | ED.URI ---
HPI - URI/Sore Throat General Chief Complaint: Upper Respiratory Infection Stated Complaint: Cough,stuffy nose Source: patient Mode of arrival: ambulatory History of Present Illness HPI Narrative: a 56-year-old female with chronic bronchitis smoker having chest congestion with nonproductive cough no fever chills was recently tested by her primary care physician for COVID influenza which were negative presents here today with continued cough and congestion with some no chest pain or tightness no abdominal pain no headaches no blurry vision does have some sinus congestion and pressure. MD elicited complaint: cough and nasal congestion Onset (ago): day(s) Related Data Home Medications Medication Instructions Recorded Confirmed alprazolam 0.25 mg PO PRN PRN 07/21/19 04/25/21 citalopram 40 mg PO DAILY 07/21/19 04/25/21 triamterene-hydrochlorothiazid 1 tablet PO DAILY 07/11/20 04/25/21 allopurinol 100 mg PO DAILY 04/25/21 04/25/21 Allergies Allergy/AdvReac Type Severity Reaction Status Date / Time No Known Allergies Allergy Verified 04/25/21 11:02 Review of Systems Review of Systems: All systems reviewed & are unremarkable except as noted in HPI and below PMFSH Past Medical History Medical History Carpal tunnel syndrome, bilateral upper limbs No active medical problems Surgical History Surgical History S/P epidural steroid injection Family History Family History Mother , mother had Alzheimer's. She had a aneurysm in the heart. She 2 months ago at age 75. No problems noted. Social History Social History Smoking packs per day: 0.5 Smoking cigarettes per day: 10.0 Years smoked: 15 Smoking pack-years: 7.50 Smoking status: Current every day smoker Tobacco type: cigarettes Alcohol intake: current Drinks per week: 4 Alcohol use details: drinks wine Substance use: never Substance use type: does not use Spiritual care concerns: No Exam Const: General: no acute distress Orientation/consciousness: patient oriented x3 HENMT: Head: normal to inspection Eyes: Conjunctivae: conjunctivae normal Pupils: Equal, round and reactive pupils present Chest: Chest palpation & inspection: normal inspection of the chest Resp: Effort & Inspection: normal respiratory effort Auscultation: wheezes Cardio: Rate: regular rate Rhythm: regular rhythm GI: GI Palp: Yes Soft to palpation : General: Yes no CVA tenderness Urinary Catheter: Urinary Catheter: patent and draining Back/Spine/Pelvis: Back: no CVA tenderness Skin: General skin exam: normal color Neuro: General: patient oriented x3 and moves all extremities Extrem: General: normal to inspection and no pedal edema Psych: Mental Status: mental status grossly normal Course Course Emergency Course: X-ray reviewed with patient, patient breathing easier with some nebulizer treatment and will give a dose of 1 g of ceftriaxone. Critical Care Time Critical Care Time Critical Care Time: No Discharge Plan Discharge Clinical Impression: Upper respiratory tract infection Qualifiers: URI type: unspecified URI Qualified Code(s): J06.9 - Acute upper respiratory infection, unspecified Patient Disposition: Home, Self-Care Condition: Stable Instructions: Antibiotic Form, Upper Respiratory Infection (ED) Additional Instructions: take medicine as prescribed follow-up primary care physician if symptoms persist or worsen. Prescriptions: New albuterol sulfate [ProAir HFA] 90 mcg/actuation HFA aerosol inhaler 2 puff inhalation QID PRN (Reason: shortness of breath or wheezing) Qty: 6.7 RF: 0 azithromycin [Zithromax Z-Surinder] 250 mg tablet See Rx Instructions .ROUTE .COMPLEX Qty: 6
[2021-04-25 11:35] VITALS: PULSE 94; RESP 20; O2SAT 97
[2021-04-25 11:50] VITALS: BP 162/74; PULSE 89; RESP 18; O2SAT 97
[2021-04-25] MEDS: cefTRIAXone 1 GM VIAL IM (11:54)
== END 2021-04-25 11:57 | disposition home or self-care (01) ==
PROVIDERS: Emergency Provider Emergency Medicine; PCP Internal Medicine
DX: J06.9 Acute upper respiratory infection, unspecified (principal)
CPT/HCPCS: 71046; 94640; 96372; 99283; 99284; J0696; J1030

== ENCOUNTER 2021-08-31 07:44 | Outpatient (CLI) | payer OTHER, SELFPAY ==
[2021-08-31 08:03] LABS: Add Urine Microscopic? NO; Appearance Urine Clear (Clear); Bilirubin Urine Negative (Negative); Blood Urine Negative (Negative); Color Urine Light Yellow (Yellow); Glucose Urine UA Negative (Negative); Ketones Urine Negative (Negative); Leukocyte Esterase Ur Negative (Negative); Nitrate Urine Negative (Negative); Protein Urine Negative (Negative); Urobilinogen Urine 0.2 mg/dL (0.2-1.0)
[2021-08-31 08:11] LABS: Hemoglobin A1C 6.1 % (<5.7)
[2021-08-31 09:20] LABS: Alanine Aminotransferase 34 U/L (14-59); Albumin Level 3.5 g/dL (3.4-5.0); Alkaline Phosphatase 65 U/L (46-116); Anion Gap 9 mmol/L (8-16); Aspartate Amino Transferase 18 U/L (15-37); Bilirubin,Total 0.3 mg/dL (0.00-1.00); Blood Urea Nitrogen 11 mg/dL (7-18); Calcium 8.8 mg/dL (8.5-10.1); Carbon Dioxide 29 mmol/L (21-32); Chloride 106 mmol/L (98-108); Cholesterol 171 mg/dL (0-200); Estimated Glomerular Filt Rate 57; Glucose 113 mg/dL (70-99); HDL Direct 40 mg/dL (40-60); LDL Cholesterol Calculated 104 mg/dL (<130); Osmolality Calculated 298 mOsm/kg (285-295); Potassium 4.1 mmol/L (3.5-5.1); Sodium 144 mmol/L (136-145); Total Protein 6.7 g/dL (6.4-8.2); Triglycerides 137 mg/dL (0-150); Uric Acid 4.7 mg/dL (2.6-6.0)
== END 2021-08-31 07:45 | disposition home or self-care (01) ==
LOC: CHSLAB 07:46
PROVIDERS: PCP Internal Medicine; Visit Provider Internal Medicine
DX: E78.2 Mixed hyperlipidemia (principal); I10 Essential (primary) hypertension; R73.01 Impaired fasting glucose; E79.0 Hyperuricemia without signs of inflammatory arthritis and tophaceous disease
CPT/HCPCS: 36415; 80053; 80061; 81003; 83036; 84550

== ENCOUNTER 2021-11-04 10:59 | Outpatient (CLI) | payer OTHER, SELFPAY ==
--- NOTE | ~2021-11-04 | XR_ITS ---
EXAM: XR lumbar spine 2-3V HISTORY: CHRONIC LBP . COMPARISON: MRI lumbar spine 01/15/2006. FINDINGS: 5 nonrib-bearing lumbar-type vertebral bodies. Bilateral enlarged L5 transverse processes with pseudoarthrosis formation at the iliac crests. Pedicles intact. 14 mm anterolisthesis of L5 on S 1, alignment otherwise intact. Vertebral body heights preserved. Mild disc space narrowing at L1-2. M oderate disc space narrowing at L3-4. Severe disc space narrowing and ankylosis at L5-S1. Multilevel facet sclerosis in the mid and lower lumbar spine. IMPRESSION: Grade 2 anterolisthesis of L5 on S1, with likely intervertebral ankylosis. Multilevel deg enerative disc and facet disease. Bilateral L5 transverse process pseudarthroses which may be a sourc e of chronic pain. Reviewed, dictated and finalized at location K. IMPRESSION: Grade 2 anterolisthesis of L5 on S1, with likely intervertebral ank ylosis. Multilevel degenerative disc and facet disease. Bilateral L5 transverse process pseudarthroses which may be a source of chronic pain.
--- NOTE | ~2021-11-04 | XR_ITS ---
XR_CERV2-3V_CR 11/04/2021 11:43 Indication: Chronic neck pain Procedure: 3 view cervical spine Comparison: 12/17/2015 Findings: Straightening of cervical lordosis. There is degenerative disc disease at C5-6 and C6-7. Th ere is uncinate degenerative change at C5-6 and C6-7. Lung apices are unremarkable. Vertebral body he ights are maintained. No prevertebral soft tissue swelling. Odontoid process within normal limits. Impression: 1: Mild-moderate lower cervical spondylosis. Reviewed, dictated and finalized at location A. Impression: 1: Mild-moderate lower cervical spondylosis.
--- NOTE | ~2021-11-04 | XR_ITS ---
XR hip RT min 2V 11/04/2021 11:44 Indication: Chronic right hip pain Procedure: 2 views right hip Comparison: No prior studies for comparison. Findings: There is anatomic alignment. No fracture, subluxation or dislocation. No significant soft t issue abnormality. There is osteitis pubis. Impression: 1: No significant bone or joint abnormality. Reviewed, dictated and finalized at location A. Impression: 1: No significant bone or joint abnormality.
[2021-11-04 11:26] LABS: Basophils Absolute Auto 0.07 K/mm3 (0.00-0.10); Eosinophils Absolute Auto 0.47 K/mm3 (0.02-0.50); Eosinophils Percent Auto 6.7 % (1.0-6.0); Hematocrit 42.5 % (35.0-49.0); Hemoglobin 13.5 g/dL (12.0-15.0); Immature Granulocyte Absolute 0.02 K/mm3 (0.00-0.00); Immature Granulocyte Percent A 0.3 % (0.0-0.0); Lymphocytes Absolute Auto 2.55 K/mm3 (1.10-4.50); Lymphocytes Percent Auto 36.1 % (18.0-42.0); Mean Corpuscular HGB Conc 31.8 g/dL (32.0-36.0); Mean Corpuscular Hemoglobin 31.3 pg (27.0-31.0); Mean Corpuscular Volume 98.4 fL (78.0-102.0); Mean Platelet Volume 11.3 fl (9.2-11.8); Monocytes Absolute Auto 0.39 K/mm3 (0.10-0.90); Monocytes Percent Auto 5.5 % (2.0-11.0); Neutrophils Absolute Auto 3.6 K/mm3 (1.7-7.2); Neutrophils Percent Auto 50.4 % (50.0-70.0); Platelet Count Result 199 K/mm3 (150-420); Red Blood Count 4.32 M/mm3 (4.20-5.40); Red Cell Distribution Width 14.4 % (11.6-14.4); White Blood Count 7.1 K/mm3 (4.8-10.8)
[2021-11-04 11:39] LABS: Alanine Aminotransferase 40 U/L (14-59); Albumin Level 3.5 g/dL (3.4-5.0); Alkaline Phosphatase 73 U/L (46-116); Anion Gap 7 mmol/L (8-16); Aspartate Amino Transferase 24 U/L (15-37); Bilirubin,Total 0.3 mg/dL (0.00-1.00); Blood Urea Nitrogen 12 mg/dL (7-18); CRP 1.7 mg/dL (0.0-0.9); Calcium 8.8 mg/dL (8.5-10.1); Carbon Dioxide 29 mmol/L (21-32); Chloride 104 mmol/L (98-108); Estimated Glomerular Filt Rate > 60; Glucose 100 mg/dL (70-99); Osmolality Calculated 289 mOsm/kg (285-295); Potassium 3.9 mmol/L (3.5-5.1); Sodium 140 mmol/L (136-145); Total Protein 7.5 g/dL (6.4-8.2); Uric Acid 4.3 mg/dL (2.6-6.0)
[2021-11-04 12:04] LABS: Rheumatoid Factor Screen Negative (Negative)
[2021-11-04 12:30] LABS: Erythrocyte Sedimentation Rate 34 mm/hr (0-20)
[2021-11-08 11:58] LABS: Anti Cyclic Citrullinated Pept <16 Units (<20)
[2021-11-11 23:30] LABS: Anti Nuclear Antibody Titer >=1:1280 (Negative)
== END 2021-11-04 11:00 | disposition home or self-care (01) ==
LOC: CHSLAB 11:04
PROVIDERS: PCP Internal Medicine; Visit Provider Internal Medicine
DX: M54.2 Cervicalgia (principal); M54.50 Low back pain, unspecified; M25.551 Pain in right hip; E79.0 Hyperuricemia without signs of inflammatory arthritis and tophaceous disease; M13.0 Polyarthritis, unspecified
CPT/HCPCS: 36415; 72040; 72100; 73502; 80053; 84550; 85025; 85652; 86038; 86039; 86140; 86200; 86430

== ENCOUNTER 2021-11-06 07:25 | Outpatient (CLI) | payer OTHER, SELFPAY ==
--- NOTE | ~2021-11-06 | CT_ITS ---
EXAMINATION: CT abdomen pelvis w con DATE: 11/06/2021 08:16 INDICATION: Ovarian tumor. TECHNIQUE: Computed tomography (CT) of the abdomen and pelvis was performed with 100 mL Omnipaque 350 intravenous contrast. Automated exposure control and iterative reconstruction technique were employe d. The dose-length product was 1479.30 mGy-cm. COMPARISON: CT abdomen and pelvis 07/07/2020 FINDINGS: The visualized portions of the lung bases are clear without pneumonia or pleural effusion. The heart size is normal. No pericardial effusion. There is diffuse hepatic steatosis. There are gall stones in the gallbladder, which is normal in size. The spleen, pancreas, adrenal glands, and kidneys are normal. There are scattered diverticula in the colon. There is wall thickening of the sigmoid co cordelia with adjacent fat stranding, consistent with diverticulitis. The appendix is normal. There are no pathologically enlarged lymph nodes. There is no free intraperitoneal fluid. There is moderate lumba r spondylosis. There is interbody fusion at L5-S1. IMPRESSION: 1. Sigmoid diverticulitis. 2. No evidence of metastatic disease. Reviewed, dictated and finalized at location A.
== END 2021-11-06 07:26 | disposition home or self-care (01) ==
LOC: CHSIMG 07:26
PROVIDERS: PCP Internal Medicine; Visit Provider Internal Medicine
DX: Z87.42 Personal history of other diseases of the female genital tract (principal)
CPT/HCPCS: 74177; Q9967

== ENCOUNTER 2021-12-17 12:53 | Outpatient (CLI) | payer OTHER, SELFPAY ==
--- NOTE | ~2021-12-17 | NM_ITS ---
EXAMINATION: NM hepatobiliary w pharm DATE: 12/18/2021 INDICATION: Right upper quadrant abdominal pain COMPARISON: None. TECHNIQUE: 6 mCi Tc-99m mebrofenin (Choletec) was administered intravenously. Scintigraphic images o f the abdomen were obtained for one hour. At the 1 hour time point, the patient drank 8 oz Ensure, an d imaging was continued for 60 minutes. Gallbladder ejection fraction was calculated by the technolog ist. FINDINGS: There is normal clearance of radiotracer from the blood pool. There is homogeneous tracer u ptake by the liver. Activity progresses to the bowel and gallbladder. The gallbladder ejection fract ion (GBEF) is 71%. Note that with this technique, normal GBEF >= 33%. IMPRESSION: 1. Normal hepatobiliary scan Reviewed, dictated and finalized at location A.
== END 2021-12-17 12:54 | disposition home or self-care (01) ==
LOC: CHSIMG 12:54
PROVIDERS: PCP Internal Medicine; Visit Provider Internal Medicine
DX: K80.20 Calculus of gallbladder without cholecystitis without obstruction (principal); R10.11 Right upper quadrant pain
CPT/HCPCS: 78227; A9537; J2805

== ENCOUNTER 2022-01-01 09:51 | Outpatient (CLI) | payer OTHER, SELFPAY ==
--- NOTE | ~2022-01-01 | XR_ITS ---
XR cervical spine min 6V DATE: 01/01/2022 10:18 INDICATION: Cervical radiculopathy TECHNIQUE: .AP, lateral, open mouth COMPARISON: None FINDINGS: There is mild reversal of cervical curvature . There is moderately severe degenerative disc disease and prominent uncovertebral spurring at C5-6 and C6-7. C1 and C2 are normally aligned and the odontoid process is intact. No fracture or dislocation or locked facet or prevertebral soft tissue swelling. IMPRESSION: Reversal of cervical curvature Moderately severe degenerative disc disease and prominent uncovertebral spurring at C5-6 and C6-7 Reviewed, dictated and finalized at location A. IMPRESSION: Reversal of cervical curvature Moderately severe degenerative disc disease and prominent uncovertebral spurrin g at C5-6 and C6-7
== END 2022-01-01 09:52 | disposition home or self-care (01) ==
LOC: CHSIMG 09:55
PROVIDERS: PCP Internal Medicine
DX: M50.10 Cervical disc disorder with radiculopathy, unspecified cervical region (principal)
CPT/HCPCS: 72052

== ENCOUNTER 2022-01-13 08:50 | Outpatient (RCR) | payer OTHER, SELFPAY ==
--- NOTE | 2022-01-13 09:35 | PTOPEVAL ---
Thank you for referring Jen Waddell to [facility] The patient is scheduled to be seen for therapy? __2__x/week for 10 visits. Please review, sign, date and return this plan of care YANELY. I agree with and certify that the following plan of care is medically necessary. Referring Physician Date Admitting Provider: Attending Provider: Vitor Jones Referring Provider: *PT Outpatient Evaluation Start: 01/13/22 09:07 Freq: Status: Active Protocol: Document 01/13/22 09:07 HERB (Rec: 01/13/22 09:34 HERB [id number]) Therapy Assessment Status Assessment Status Assessment Status Evaluation Outpatient Past Medical History Neurological History Hx Neurological Disorders No Significant History Cardiovascular History Hx Hypertension Yes Respiratory History Hx Bronchitis Yes Hx Pneumonia Yes Gastrointestinal History Hx Gastrointestinal Disorders No Significant History Genitourinary History Hx Genitourinary Disorders No Significant History Musculoskeletal History Hx Gout Yes Hx Orthopedic Surgery Yes: carpal tunnel BILATERAL Hematological History Hx Hematological Disorders No Significant History Endocrine History Hx Endocrine Disorders No Significant History HEENT History Hx HEENT Disorders No Significant History Integumentary History Hx Skin Disorders No Significant History Reproductive History Hx Post Menopausal Yes Psychosocial History Hx Anxiety Yes Hx Depression Yes Pain History History of Any Previous or Ongoing No Significant History Instance of Pain Anesthesia History Hx Anesthesia Reactions No Significant History Evaluation Information Problem Diagnosis neck pain Onset 01/01/22 Subjective Information Pt. reports that she has been Query Text:As Reported By Patient/ experiencing on/off neck pain Family for years. 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 She describes pain on both sides of the neck and tightness. She does experience numbness in both arms on occassion. She has difficulty with sleep due to pain. She reports that she has had to reduce her work hours due to increased pain with work related tasks. She enjoys art work but has not been able to participate as of
--- NOTE | 2022-02-03 10:09 | PCPTNOTE ---
Pt. contacted the clinic on this date. she stated that she is continuing with her exercise and doing much better. She request discharge at this time.
== END 2022-01-13 14:14 | disposition home or self-care (01) ==
LOC: CHSPT 08:50
PROVIDERS: PCP Internal Medicine
DX: M47.812 Spondylosis without myelopathy or radiculopathy, cervical region (principal)
CPT/HCPCS: 97014; 97110; 97161; G0283

== ENCOUNTER 2022-08-06 11:40 | Emergency (ER) | payer OTHER, SELFPAY ==
--- NOTE | ~2022-08-06 | XR_ITS ---
EXAMINATION: XR chest 2V DATE: 08/06/2022 12:31 INDICATION: Cough and congestion TECHNIQUE: PA and lateral views of the chest are obtained. COMPARISON: 04/25/2021 FINDINGS: The lungs are free of acute opacities. No pleural effusion or pneumothorax. The cardiomedia stinal silhouette is normal. There is moderate thoracic spondylosis. IMPRESSION: 1. No acute cardiopulmonary abnormality. Reviewed, dictated and finalized at location B. 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
[2022-08-06 11:41] VITALS: BP 139/87; PULSE 81; RESP 16; TEMP 37.2; O2SAT 98
[2022-08-06 12:17] LABS: Strep Group A RT-PCR NOT DETECTED (Negative)
--- NOTE | 2022-08-06 12:17 | ED.URI ---
HPI - URI/Sore Throat General Chief Complaint: Upper Respiratory Infection Stated Complaint: upper respratory Time Seen by Provider: 08/06/22 12:17 History of Present Illness HPI Narrative: 57-year-old female patient is here with complaints of cough and congestion that started about 5 days ago. Initial symptoms included a sore throat and nasal congestion but the sore throat has gotten better since then. Patient has also had a very wheezy cough and she feels that to her congestion has gone into her chest. She is a smoker of a pack of cigarettes a day. She states that every year she gets about a bronchitis or even pneumonia. She has noticed low-grade fever but denies any chills. He does not recall having any sputum production. Reports no exposure to COVID or flu. Has not had COVID or flu vaccinations. She states that she tested herself twice last week and was negative for COVID at home. Related Data Home Medications Medication Instructions Recorded Confirmed citalopram 40 mg tablet 40 mg PO DAILY 07/21/19 08/06/22 cyclobenzaprine 10 mg tablet 10 mg PO TID 02/17/22 08/06/22 Allergies Allergy/AdvReac Type Severity Reaction Status Date / Time No Known Allergies Allergy Verified 08/06/22 12:08 Review of Systems Review of Systems: All systems reviewed & are unremarkable except as noted in HPI and below Constitutional: Constitutional: Reports no additional constitutional complaints ENT: Reports system reviewed and no additional complaints, except as documented Cardiovascular: Cardiovascular: Reports no additional cardiovascular complaints Respiratory: Respiratory: Reports chest congestion, Reports cough and Reports wheezing Gastrointestinal: Gastrointestinal: Reports no additional gastrointestinal complaints Genitourinary: Genitourinary: Reports no additional female genitourinary complaints Musculoskeletal: Musculoskeletal: Reports no additional musculoskeletal complaints Integumentary/Breasts: Skin/Breast: Reports system reviewed and no additional complaints, except as docu Neurologic: Reports system reviewed and no additional complaints, except as documented Psychiatric: Psychiatric: Reports no additional psychiatric complaints Endocrine: Endocrine: Reports no additional endocrine complaints Hematologic/Lymphatic: Hematologic/Lymphatic: Reports no additional hematologic/lymphatic complaints Allergic/Immunologic: Allergic/Immunologic: Reports no additional allergic/immunologic complaints PMFSH Past Medical History Medical History Carpal tunnel syndrome, bilateral upper limbs Cervical arthritis Diverticulitis HTN (hypertension) No active medical problems Surgical History Surgical History S/P epidural steroid injection Family History Family History Mother , mother had Alzheimer's. She had a aneurysm in the heart. She 2 months ago at age 75. No problems noted. Social History Social History Smoking packs per day: 0.5 Smoking cigarettes per day: 10.0 Years smoked: 15 Smoking pack-years: 7.50 Smoking status: Current every day smoker Tobacco type: cigarettes Alcohol intake: current Drinks per week: 4 Alcohol use details: drinks wine Substance use: never Substance use type: does not use Spiritual care concerns: No Exam Narrative: Alert female patient in no acute distress. Vital signs are stable. Patient is afebrile with a temperature of 37.2?, SpO2 on room air is 98%. HEENT: normocephalic. Midsized pupils equal reactive to light. Ear nose throat appear normal. \ Neck is supple. Chest wall is nontender. Breath sounds are audible bilaterally. There are some coarse wheezing in the upper chest and lung price especially with coughing. No re
[2022-08-06 12:27] LABS: Influenza A QL RT-PCR Negative (Negative); Influenza B QL RT-PCR Negative (Negative); SARS-CoV-2 RNA PCR Negative (Negative)
[2022-08-06 12:29] LABS: RSV RNA, RT-PCR Negative (Negative)
[2022-08-06 13:19] VITALS: BP 121/80; PULSE 74; RESP 16; TEMP 37; O2SAT 98
== END 2022-08-06 13:33 | disposition home or self-care (01) ==
PROVIDERS: Emergency Provider Emergency Medicine; PCP Nurse Practitioner Family
DX: J40 Bronchitis, not specified as acute or chronic (principal); I10 Essential (primary) hypertension; F17.210 Nicotine dependence, cigarettes, uncomplicated; Z20.822 Contact with and (suspected) exposure to COVID-19
CPT/HCPCS: 71046; 87637; 87651; 99283

== ENCOUNTER 2023-01-19 08:05 | Outpatient (CLI) | payer OTHER, SELFPAY ==
--- NOTE | ~2023-01-19 | MM_ITS ---
EXAMINATION: MM screening migue BI w henry HISTORY: Screening mammogram TECHNIQUE: Craniocaudal and mediolateral oblique 3-D tomosynthesis images were obtained and synthetic 2-D images were generated. CAD analysis was submitted and interpreted. COMPARISON: 03/12/2021, 12/20/2019, 01/19/2017 bilateral screening mammogram examinations BREAST PARENCHYMAL COMPOSITION: There are scattered areas of fibroglandular density. FINDINGS: Stable approximately 4 x 5.4 mm circumscribed opacity in the anterior upper central left br east since 01/19/2017. Occasional bilateral benign calcifications. There is no evidence of suspicious m ass, calcification, or architectural distortion to suggest malignancy in either breast. There has bee n no suspicious interval change. IMPRESSION: 1. No mammographic evidence of malignancy. 2. Recommend routine screening mammography in one year. BI-RADS Category 2: Benign finding(s). Reviewed, dictated and finalized at location A.
[2023-01-19 08:20] LABS: Hematocrit 44.4 % (35.0-49.0); Hemoglobin 14.4 g/dL (12.0-15.0); Mean Corpuscular HGB Conc 32.4 g/dL (32.0-36.0); Mean Corpuscular Hemoglobin 30.8 pg (27.0-31.0); Mean Corpuscular Volume 95.1 fL (78.0-102.0); Mean Platelet Volume 11.1 fl (9.2-11.8); Platelet Count Result 171 K/mm3 (150-420); Red Blood Count 4.67 M/mm3 (4.20-5.40); Red Cell Distribution Width 14.8 % (11.6-14.4); White Blood Count 5.9 K/mm3 (4.8-10.8)
--- NOTE | 2023-01-19 08:22 | ECG_ITS ---
Measurements Intervals [place] Rate: 51 P: 52 [place]: 164 QRS: 54 QRSD: 93 T: 45 QT: 452 QTc: 419 Interpretive Statements SINUS BRADYCARDIA NONSPECIFIC T-WAVE FLATTENING COMPARED TO ECG 09/24/2019 10:42:03 SINUS BRADYCARDIA NOW PRESENT T-WAVE ABNORMALITY NOW PRESENT Electronically Signed On 01-19-2023 19:41:32 CDT by Alaina Crawford M.D.
[2023-01-19 09:05] LABS: Alanine Aminotransferase 20 U/L (14-59); Albumin Level 3.6 g/dL (3.4-5.0); Alkaline Phosphatase 63 U/L (46-116); Anion Gap 6 mmol/L (8-16); Bilirubin,Total 0.4 mg/dL (0.00-1.00); Blood Urea Nitrogen 18 mg/dL (7-18); Calcium 9.2 mg/dL (8.5-10.1); Carbon Dioxide 29 mmol/L (21-32); Chloride 107 mmol/L (98-108); Cholesterol 186 mg/dL (0-200); Estimated Glomerular Filt Rate > 60; Glucose 103 mg/dL (70-99); HDL Direct 43 mg/dL (40-60); LDL Cholesterol Calculated 123 mg/dL (<130); Osmolality Calculated 295 mOsm/kg (285-295); Potassium 4.3 mmol/L (3.5-5.1); Sodium 142 mmol/L (136-145); Thyroid Stimulating Hormone 1.55 uIU/mL (0.36-3.74); Total Protein 6.8 g/dL (6.4-8.2); Triglycerides 101 mg/dL (0-150)
[2023-01-19 09:14] LABS: Aspartate Amino Transferase 13 U/L (15-37)
== END 2023-01-19 08:06 | disposition home or self-care (01) ==
LOC: CHSIMG 08:06
PROVIDERS: PCP Nurse Practitioner Family; Visit Provider Nurse Practitioner Family
DX: Z12.31 Encounter for screening mammogram for malignant neoplasm of breast (principal); I10 Essential (primary) hypertension; R01.1 Cardiac murmur, unspecified; R00.1 Bradycardia, unspecified; R94.31 Abnormal electrocardiogram [ECG] [EKG]
CPT/HCPCS: 36415; 77063; 77067; 80053; 80061; 84443; 85027; 93005

== ENCOUNTER 2024-01-04 08:40 | Outpatient (CLI) | payer OTHER, SELFPAY ==
[2024-01-04 08:55] LABS: Basophils Absolute Auto 0.04 K/mm3 (0.00-0.10); Basophils Percent Auto 0.7 % (0.0-1.0); Eosinophils Absolute Auto 0.39 K/mm3 (0.02-0.50); Eosinophils Percent Auto 6.5 % (1.0-6.0); Hematocrit 43.9 % (35.0-49.0); Hemoglobin 14.5 g/dL (12.0-15.0); Immature Granulocyte Absolute 0.01 K/mm3 (0.00-0.00); Immature Granulocyte Percent A 0.2 % (0.0-0.0); Lymphocytes Absolute Auto 1.79 K/mm3 (1.10-4.50); Lymphocytes Percent Auto 29.7 % (18.0-42.0); Mean Corpuscular Volume 96.9 fL (78.0-102.0); Mean Platelet Volume 10.6 fl (9.2-11.8); Monocytes Absolute Auto 0.38 K/mm3 (0.10-0.90); Monocytes Percent Auto 6.3 % (2.0-11.0); Neutrophils Absolute Auto 3.42 K/mm3 (1.70-7.20); Neutrophils Percent Auto 56.6 % (50.0-70.0); Platelet Count Result 177 K/mm3 (150-420); Red Blood Count 4.53 M/mm3 (4.20-5.40); Red Cell Distribution Width 14.5 % (11.6-14.4)
[2024-01-04 09:05] LABS: Hemoglobin A1C 5.5 % (<5.7)
[2024-01-04 09:34] LABS: Alanine Aminotransferase 19 U/L (14-59); Albumin Level 3.5 g/dL (3.4-5.0); Alkaline Phosphatase 64 U/L (46-116); Anion Gap 8 mmol/L (4-12); Aspartate Amino Transferase 17 U/L (15-37); Bilirubin,Total 0.3 mg/dL (0.00-1.00); Blood Urea Nitrogen 15 mg/dL (7-18); Carbon Dioxide 26 mmol/L (21-32); Chloride 106 mmol/L (98-108); Cholesterol 183 mg/dL (0-200); Estimated Glomerular Filt Rate > 60; Glucose 99 mg/dL (70-99); HDL Direct 45 mg/dL (40-60); LDL Cholesterol Calculated 124 mg/dL (<130); Osmolality Calculated 290 mOsm/kg (285-295); Potassium 4.5 mmol/L (3.5-5.1); Sodium 140 mmol/L (136-145); Total Protein 6.7 g/dL (6.4-8.2); Triglycerides 69 mg/dL (0-150)
== END 2024-01-04 08:41 | disposition home or self-care (01) ==
LOC: CHSLAB 08:42
PROVIDERS: PCP Nurse Practitioner Family; Visit Provider Nurse Practitioner Family
DX: Z00.00 Encounter for general adult medical examination without abnormal findings (principal)
CPT/HCPCS: 36415; 80053; 80061; 83036; 85025

== ENCOUNTER 2024-01-24 13:10 | Outpatient (CLI) | payer OTHER, SELFPAY ==
--- NOTE | ~2024-01-24 | MM_ITS ---
EXAMINATION: MM screening migue BI w henry HISTORY: Screening TECHNIQUE: Craniocaudal and mediolateral oblique 3-D tomosynthesis images were obtained and synthetic 2-D images were generated. CAD analysis was submitted and interpreted. COMPARISON: Comparison to multiple prior studies sequentially, with oldest reviewed study dated 11/2013. BREAST PARENCHYMAL COMPOSITION: Not Dense: The breasts are almost entirely fatty. FINDINGS: There is no evidence of suspicious mass, calcification, or architectural distortion to sugg est malignancy in either breast. There has been no suspicious interval change. IMPRESSION: 1. No mammographic evidence of malignancy. 2. Recommend routine screening mammography in one year. BI-RADS Category 1: Negative Reviewed, dictated and finalized at location B.
== END 2024-01-24 13:11 | disposition home or self-care (01) ==
LOC: CHSIMG 13:11
PROVIDERS: PCP Family Medicine; Visit Provider Nurse Practitioner Family
DX: Z12.31 Encounter for screening mammogram for malignant neoplasm of breast (principal)
CPT/HCPCS: 77063; 77067

== ENCOUNTER 2024-03-06 13:31 | Emergency (ER) | payer OTHER, SELFPAY ==
[2024-03-06 13:33] VITALS: BP 109/73; PULSE 85; RESP 20; TEMP 36.6; O2SAT 97
--- NOTE | 2024-03-06 14:07 | ED.SKABFB ---
HPI - Skin/Abscess/Foreign Bdy General Chief complaint: Skin/Abscess/Foreign Body Stated complaint: spider bite Time Seen by Provider: 03/06/24 13:51 Source: patient Mode of arrival: ambulatory Limitations: no limitations History of Present Illness complaint: lesion Onset (ago): day(s) (2 ) Location: back (right lower flank) Severity: moderate Quality: dull Pain Consistency: constant Relieving factors: none Exacerbating factors: none Associated symptoms: other (feels like skin to upper chest and neck are flushed / like sunburn) Treatments prior to arrival: none Related Data Allergies Allergy/AdvReac Type Severity Reaction Status Date / Time No Known Allergies Allergy Verified 03/06/24 13:47 Review of Systems Review of Systems: All systems reviewed & are unremarkable except as noted in HPI and below Constitutional: Constitutional: Reports as per HPI, Denies chills and Denies fever(s) Eyes: Eyes: Reports as per HPI ENT: Reports system reviewed and no additional complaints, except as documented Cardiovascular: Cardiovascular: Reports as per HPI and Denies chest pain Respiratory: Respiratory: Reports as per HPI and Denies dyspnea Gastrointestinal: Gastrointestinal: Reports as per HPI, Denies diarrhea, Denies nausea and Denies vomiting Genitourinary: Genitourinary: Reports no additional female genitourinary complaints Musculoskeletal: Musculoskeletal: Reports no additional musculoskeletal complaints and Reports myalgias Integumentary/Breasts: Skin/Breast: Reports system reviewed and no additional complaints, except as docu Neurologic: Reports system reviewed and no additional complaints, except as documented, Denies headache(s), Denies focal weakness and Denies numbness PMFSH Past Medical History Medical History Anxiety with depression Carpal tunnel syndrome, bilateral upper limbs Cervical arthritis Diverticulitis HTN (hypertension) No active medical problems Surgical History Surgical History S/P epidural steroid injection Family History Family History Mother , mother had Alzheimer's. She had a aneurysm in the heart. She 2 months ago at age 75. No problems noted. Grandparent Diabetes mellitus Social History Social History Smoking packs per day: 0.5 Smoking cigarettes per day: 10.0 Years smoked: 30 Smoking pack-years: 15.00 Smoking status: Current every day smoker Tobacco type: cigarettes Additional smoking assessment comments: marijuana/cigarette smoking Alcohol intake: current Drinks per week: 4 Alcohol use details: drinks wine Substance use: never Substance use type: does not use Lack of Transportation: No Lack of Food: Never True Current Housing: I Have Housing Concerned About Future Housing: No Difficulty Paying Gas/Electric Bills: No Difficulty Paying for Meds: No Currently Unemployed: No Education: Trade/Vocational Certificate Difficulty w/ Childcare or Family Care: No Spiritual care concerns: No Exam Const: General: healthy appearing, no acute distress and alert Nutritional Appearance: well nourished Orientation/consciousness: patient oriented x3 Limitations: no limitations HENMT: Head: normal to inspection Ears: external ears normal Face/Nose/Sinus: Normal external nose present Face and sinus: normal facial exam Mouth: Yes Normal oral and palatal mucosa present Throat: posterior oropharynx normal and uvula midline Eyes: Conjunctivae: conjunctivae normal Pupils: Equal, round and reactive pupils present EOM: EOMs intact bilaterally Direct Ophthalmoscopy: no photophobia Neck: Neck: normal visual inspection, no lymphadenopathy and no meningeal signs Chest: Chest palpation & inspection: normal i
== END 2024-03-06 14:20 | disposition home or self-care (01) ==
PROVIDERS: Emergency Provider Emergency Medicine; PCP Nurse Practitioner Family
DX: L03.311 Cellulitis of abdominal wall (principal); I10 Essential (primary) hypertension; F17.210 Nicotine dependence, cigarettes, uncomplicated
CPT/HCPCS: 99283

== ENCOUNTER 2025-05-10 09:59 | Outpatient (CLI) | payer OTHER, SELFPAY ==
--- OUTSIDE RECORDS SUMMARY | 2025-05-10 10:01 | XMS_ITS | Clinical Summary ---
Author Organization [facility] Address [address] [place] [id number] Care Team Providers Care Assistant Professor Of English Name Role Phone Javi Farr MD Primary Care Provider [phone] Active Problems No known active problems Resolved Problems Problem Noted Date Diagnosed Date Resolved Date Cervical radiculopathy 01/04/202201/05 Social History Tobacco Use Types Packs/Day Years Used Date Smoking Tobacco: Never Assessed Comments Unknown Sex and Gender Information Value Date Recorded Sex Assigned at Not on file Legal Sex Female 7:25 PM CDT Gender Identity Not on file Sexual Orientation Not on file Plan of Treatment Health Maintenance Due Date Last Done Comments Cervical Cancer Screening Pa p Smear (Age 30 to 64) Every 3 Years 1966 Colorectal Cancer Screening Colonoscopy (10 Years) 1966 Annual Physical 1969 Hepatitis C 1984 DTaP, Tdap and Td Vaccines ( 1 - Tdap) 1985 Hepatitis B Vaccines (1 of 3 - 19+ 3-dose series) 1985 Cervical Cancer Screening Pa p with HPV Testing (Age 30 to 64) Every 5 Years 1996 Cervical Cancer Screening with HPV 1996 Mammogram Screening 2006 Pneumococcal Vaccine: 50+ Ye ars (1 of 1 - PCV) 2016 Zoster Vaccines (1 of 2) 2016 COVID-19 Vaccine ( - 2024-2 6 season) 2025 Influenza Adult (#1) 2025 Hepatitis A Vaccines Aged Out No long er eligible based on patient's age to complete this topic Meningococcal B Vaccine Aged Out No l onger eligible based on patient's age to complete this topic Meningococcal Vaccine Aged Out No cordelia bernie eligible based on patient's age to complete this topic RSV Immunizations Under 20 Months Aged Out No longer eligible based on patient's age to complete this topic Insurance [employer] Care Teams Assistant Professor Of English Relationship Specialty Start Date End Date Javi Farr MD [address] [place] [address] PCP - General INTERNAL MEDICINE 01/01/22
[2025-05-10 10:11] LABS: Hematocrit 42.7 % (35.0-49.0); Hemoglobin 13.7 g/dL (12.0-15.0); Immature Granulocyte Percent A 0.3 % (0.0-0.0); Lymphocytes Absolute Auto 1.93 K/mm3 (1.10-4.50); Mean Corpuscular HGB Conc 32.1 g/dL (32-36); Mean Corpuscular Hemoglobin 30.6 pg (27.0-31.0); Mean Corpuscular Volume 95.3 fL (78.0-102.0); Nucleated Red Blood Cells Absolute Auto 0.00 K/mm3 (0.00-0.00); Nucleated Red Blood Cells Perc 0.0 % (0-0.0); Platelet Count Result 201 K/mm3 (150-420); Red Blood Count 4.48 M/mm3 (4.20-5.40); White Blood Count 6.2 K/mm3 (4.8-10.8)
[2025-05-10 10:34] LABS: Alanine Aminotransferase 15 U/L (6-35); Albumin Level 4.5 g/dL (3.5-5.1); Alkaline Phosphatase 72 U/L (38-126); Anion Gap 9 mmol/L (4-12); Aspartate Amino Transferase 22 U/L (14-36); Bilirubin,Total 0.6 mg/dL (0.2-1.3); Blood Urea Nitrogen 14 mg/dL (7-17); Calcium 9.5 mg/dL (8.4-10.2); Carbon Dioxide 25 mmol/L (22-30); Chloride 107 mmol/L (98-107); Cholesterol 199 mg/dL (0-200); Estimated Glomerular Filt Rate > 60; Glucose 92 mg/dL (65-110); HDL Direct 65 mg/dL; Osmolality Calculated 292 mOsm/kg (285-295); Potassium 4.0 mmol/L (3.4-5.0); Sodium 141 mmol/L (137-145); Total Protein 7.2 g/dL (6.3-8.2); Triglycerides 124 mg/dL (<150)
[2025-05-10 10:40] LABS: Hemoglobin A1C 5.5 % (<5.7)
[2025-05-10 11:05] LABS: Thyroid Stimulating Hormone Reflex 1.900 uIU/mL (0.465-4.68)
== END 2025-05-10 10:00 | disposition home or self-care (01) ==
PROVIDERS: PCP Nurse Practitioner Family; Visit Provider Nurse Practitioner Family
DX: Z00.00 Encounter for general adult medical examination without abnormal findings (principal)
CPT/HCPCS: 36415; 80053; 80061; 83036; 84443; 85025

== ENCOUNTER 2025-05-29 11:17 | Outpatient (CLI) | payer OTHER, SELFPAY ==
--- NOTE | ~2025-05-29 | CT_ITS ---
EXAM/PROCEDURE: CT abdomen pelvis w con HISTORY: R19.00 - Intra-abdominal and pelvic swelling, mass and jonathon... COMPARISON: November [id number] TECHNIQUE: Contrast-enhanced CT of abdomen and pelvis FINDINGS: The bowel gas pattern is nonobstructive with no free air free fluid or pneumatosis. Normal size aorta and appendix. Cholelithiasis with no gross CT evidence of acute cholecystitis. Liver spleen pancreas adrenal glands kidneys and stomach appear stable. Patient appears to be status post hysterectomy. Urinary bladder unremarkable. Moderately severe diverticular disease with no gross acute diverticulitis. A supraumbilical left para midline 4.8 x 3.3 cm anterior peritoneal defect is increased in size from the previous exam with moderate size amount of herniated omentum. No herniated bowel. This is increased in size from the previous exam. Diastases of the abdominis rectus also is more pronounced on today's exam 2.8 x 2.7 cm soft tissue mass along the anterior margin of the peritoneum immediately below the umbilicus is similar in size to the previous exam but demonstrates dystrophic calcification today. No gross mesenteric or retroperitoneal lymphadenopathy or masses. Lung bases clear. Heart size normal. Degenerative changes throughout the bones including approximately 10 mm of anterolisthesis L5 on S1 which appears similar to the previous exam. IMPRESSION: 1. Increased size of supraumbilical ventral hernia which is now moderate in size with only herniated omentum. Diastases of the rectus abdominis is also more pronounced on today's exam. Partially calcified benign lesion in the anterior peritoneal wall just below the level of the umbilicus appears benign. 2. Other findings as above. Reviewed, dictated and finalized at location A. [facility] IMPRESSION: 1. Increased size of supraumbilical ventral hernia which is now moderate in siz e with only herniated omentum. Diastases of the rectus abdominis is also more p ronounced on today's exam. Partially calcified benign lesion in the anterior pe ritoneal wall just below the level of the umbilicus appears benign. 2. Other findings as above.
[2025-05-29 11:49] LABS: Alanine Aminotransferase 14 U/L (6-35); Albumin Level 4.7 g/dL (3.5-5.1); Alkaline Phosphatase 73 U/L (38-126); Anion Gap 8 mmol/L (4-12); Aspartate Amino Transferase 24 U/L (14-36); Bilirubin,Total 0.6 mg/dL (0.2-1.3); Blood Urea Nitrogen 15 mg/dL (7-17); Calcium 9.3 mg/dL (8.4-10.2); Carbon Dioxide 25 mmol/L (22-30); Chloride 109 mmol/L (98-107); Estimated Glomerular Filt Rate > 60; Glucose 98 mg/dL (65-110); Osmolality Calculated 294 mOsm/kg (285-295); Potassium 4.0 mmol/L (3.4-5.0); Sodium 142 mmol/L (137-145); Total Protein 7.8 g/dL (6.3-8.2)
== END 2025-05-29 11:18 | disposition home or self-care (01) ==
PROVIDERS: PCP Nurse Practitioner Family; Visit Provider Nurse Practitioner Family
DX: R19.00 Intra-abdominal and pelvic swelling, mass and lump, unspecified site (principal); K43.9 Ventral hernia without obstruction or gangrene
CPT/HCPCS: 36415; 74177; 80053; Q9967